=== PATIENT | male | born 1960 | race Caucasian/White ===

== ENCOUNTER → 2017-03-06 | Outpatient (CLI) | payer MEDICAID ==
[~2017-03-06] MED LIST: BACTRIM DS 8001 TAB PO; BENADRYL25 M1 PO; CIPRO 500MG TA500 MG PO; DARVOCET-N 1001 EACH PO; FLEXERIL10 MG PO; HYDROCODONE-APA1 TA1 PO; LORTAB 5/500 501 TAB PO; LORTAB 500 MG-71 TAB PO; MEDROL 4MG. DOSE4 MG PO; MOTRIN600 MG PO; NAPROSYN 500MG500 MG PO; NOMEDS XX; PERCOCET 5/3251 EACH PO; SULFAMETHOXAZOL1 TA6 PO; VICODIN 5/500 T1 TAB PO; VOLTAREN75 MG PO
[2017-03-06 13:57] LABS: HEMOGLOBIN 15.4 g/dL (14.1-18.0); LYMPH # 1.1 K/mm3 (0.7-4.5); LYMPH % 22.9 % (10-50)
[2017-03-06 15:19] LABS: BUN 12 mg/dL (7-18); PROSTATE-SPECIFIC AG SCREEEN 0.2 ng/mL (0.0-4.0)
[2017-03-06 16:51] LABS: GFR (ESTIMATED) 100 ML/MIN (>60)
== END ==
LOC: LAB 13:05
PROVIDERS: Nurse Practitioner Family
DX: R53.83 Other fatigue (principal); E55.9 Vitamin D deficiency, unspecified; Z12.5 Encounter for screening for malignant neoplasm of prostate
CPT/HCPCS: G0103

== ENCOUNTER → 2017-04-03 | Outpatient (CLI) | payer MEDICAID ==
--- NOTE | 2017-04-03 15:02 | RADIOLOGY REPORT PS360 ---
[id number] VIEWS Ordering Physician: IDALIAALESSIA SELBY Patient Age: 57 years: Male HISTORY: ACUTE PAIN OF LEFT SHOULDER Acute pain left shoulder no recent injury TECHNIQUE: 3 views left shoulder COMPARISON :2 view chest 2015 FINDINGS but normal glenohumeral relationships no acute fracture nor dislocation. Borderline narrowing at the glenohumeral joint with some mild hypertrophic changes about the margin of the glenoid. The humeral head and neck intact with mild sclerotic changes base of humeral head which could reflect impingement and degenerative sequela. AC joint is intact. No fracture nor dislocation. Scapula unremarkable. Upper left ribs intact IMPRESSION No fracture nor dislocation. Minor observations May reflect very early degenerative changes.
--- NOTE | 2017-04-03 15:02 | RADIOLOGY REPORT PS360 ---
[id number] VIEWS Ordering Physician: IDALIAALESSIA SELYB Patient Age: 57 years: Male HISTORY: ACUTE PAIN OF LEFT SHOULDER Acute pain left shoulder no recent injury TECHNIQUE: 3 views left shoulder COMPARISON :2 view chest 2015 FINDINGS but normal glenohumeral relationships no acute fracture nor dislocation. Borderline narrowing at the glenohumeral joint with some mild hypertrophic changes about the margin of the glenoid. The humeral head and neck intact with mild sclerotic changes base of humeral head which could reflect impingement and degenerative sequela. AC joint is intact. No fracture nor dislocation. Scapula unremarkable. Upper left ribs intact IMPRESSION No fracture nor dislocation. Minor observations May reflect very early degenerative changes.
--- NOTE | 2017-04-03 15:09 | RADIOLOGY REPORT PS360 ---
[id number] VIEWS Ordering Physician: IDALIA SELBY Patient Age: 57 years: Male HISTORY: ACUTE PAINright elbow pain TECHNIQUE: 3 views right elbow COMPARISON :December 2007. FINDINGS No joint effusion. No acute findings. Most evident about the posterior aspect of the elbow joint. These were present previously but have shown progression progression since 2007. Specifically note a generous spur from olecranon at the triceps insertion. Just superior to this is a enlarging ovoid dystrophic calcification along posterior aspect of the elbow joint-possibly could be a large synovial calcification or synovial osteochondroma now measuring up to 2.5 cm length, ( previously 14 mm length 2008). . There is also some progressive hypertrophic changes about the anterior aspect of joint fluid coronoid process as well as condyles. These features are more evident on the lateral view. The slight double density line seen towards the lateral neck of the radial head is again noted and unchanged. Old feature. Minimal roughening calcification along medial and lateral epicondyles reflects old changes from old epicondylitis. Likely additional subchondral cystic change at the trochlea here at the lateral aspect of the distal humerus. On frontal projection the lateral joint spaces well-maintained with slight narrowing at the medial elbow joint. Reflecting degenerative change IMPRESSION No acute findings. No joint effusion. No acute fracture . progressive prominent hypertrophic changes about the joint most evident along posterior elbow as discussed in text above
== END ==
LOC: RAD 12:08
DX: M25.512 Pain in left shoulder (principal)

== ENCOUNTER → 2017-04-28 | Outpatient (CLI) | payer MEDICAID ==
[2017-04-28 10:53] LABS: HEMOGLOBIN 15.8 g/dL (14.1-18.0); LYMPH % 27.8 % (10-50)
[2017-04-28 13:50] LABS: BUN 12 mg/dL (7-18)
[2017-04-28 13:54] LABS: GFR (ESTIMATED) 100 ML/MIN (>60)
== END ==
LOC: LAB 10:29
PROVIDERS: Surgery
DX: R10.9 Unspecified abdominal pain (principal); R19.00 Intra-abdominal and pelvic swelling, mass and lump, unspecified site